=== PATIENT | male | born 1960 | race Two or more races ===

== ENCOUNTER → 2019-03-05 | Day surgery (SDC) | payer OTHER ==
[~2019-03-05] VITALS: Ht 167.6 cm; Wt 86.2 kg
[2019-03-05 07:32] VITALS: BP 152/78
[2019-03-05 10:14] VITALS: BP 122/77
== END | disposition home or self-care (01) ==
LOC: DS 06:54 → OR 08:00 → GI 08:00
DX: Z12.11 Encounter for screening for malignant neoplasm of colon (principal); K57.30 Diverticulosis of large intestine without perforation or abscess without bleeding; K64.8 Other hemorrhoids; I10 Essential (primary) hypertension; M47.812 Spondylosis without myelopathy or radiculopathy, cervical region; Z86.010 Personal history of colon polyps; Z79.899 Other long term (current) drug therapy; Z98.890 Other specified postprocedural states
CPT/HCPCS: 45378; J1200; J1610; J2250; J2310; J3010; J3490